=== PATIENT | male | born 1975 | race Caucasian/White ===

== ENCOUNTER 2018-05-06 20:17 | Emergency (ER) | payer BC ==
[2018-05-06 20:42] LABS: #Eosinphils 0.1 thou/uL (0.0-0.7); #Lymphocytes 1.5 thou/uL (1.20-3.40); #Monocytes 0.4 thou/uL (0.11-0.59); #Neutrophils 6.4 thou/uL (1.40-6.50); %Basophils 0.5 % (0.0-1.0); %Eosinophils 0.7 % (0.0-10.0); %Lymphocytes 18.3 % (21.0-51.0); %Monocytes 4.7 % (0.0-10.0); %Neutrophils 75.9 % (42.0-75.0); Hemoglobin 17.3 g/dL (14.0-18.0); Mean Corpuscular HGB CONC 35.2 g/dL (32.0-36.0); Platelet Count 196 thou/uL (130-400); RBC Distribution Width 11.1 % (11.5-14.5); Red Blood Cell (RBC) Count 5.58 mill/uL (4.70-6.10); White Blood Cell (WBC) Count 8.4 thou/uL (4.8-10.8)
[2018-05-06 20:59] LABS: ALT (SGPT) 19 U/L (8-55); AST (SGOT) 13 U/L (5-34); Albumin 4.4 g/dL (3.5-5.0); Alkaline Phosphatase 49 U/L (40-150); Anion Gap 13 mmol/L (10-20); BUN (Urea Nitrogen) 16 mg/dL (8.9-20.6); Bilirubin, Total 0.9 mg/dL (0.2-1.2); Calc. Creatinine Clearance 0 mL/min (70-130); Calcium 9.5 mg/dL (7.8-10.44); Carbon Dioxide 25 mmol/L (22-29); Chloride 104 mmol/L (98-107); Estimated GFR-MDRD 78; Globulin 2.9 g/dL (2.4-3.5); Glucose 115 mg/dL (70-105); Lipase 20 U/L (8-78); Potassium 4.3 mmol/L (3.5-5.1); Protein, Total 7.3 g/dL (6.0-8.3); Sodium 138 mmol/L (136-145)
[2018-05-06] MEDS ORDERED: Ondansetron PF 4 MG/2 ML Vial ONE (22:20)
[2018-05-06 22:46] LABS: Bilirubin Negative (Negative); Blood, Urine Negative (Negative); Clarity CLEAR (Clear); Glucose, Urine (Dipstick) Negative (Negative); Leukocyte Negative (Negative); Nitrite Negative (Negative); Protein, Urine (Dipstick) Negative (Neg-Trace); Specific Gravity, Urine 1.029 (1.002-1.036); pH, Urine 5.5 (5.0-9.0)
--- NOTE | 2018-05-06 23:04 | RAD ---
FRONTAL VIEW CHEST: INDICATIONS: Cough. COMPARISON: 06/09/2012 FINDINGS: There is no focal consolidation, effusion, or pneumothorax. The cardiac silhouette is within normal limits in size for the portable technique. There is osseous degenerative change. IMPRESSION: No focal consolidation. POS: [facility]
[2018-05-06] MEDS ORDERED: Ciprofloxacin 500 MG TAB ONE (23:15)
[2018-05-06] MEDS ORDERED: metroNIDAZOLE 500 MG/100 ML BAG ONE (23:16)
[2018-05-06] MEDS ORDERED: Acetaminophen 500 MG TAB ONE (23:16)
== END 2018-05-07 00:49 | disposition home or self-care (01) ==
LOC: ERS 20:17
DX: R10.9 Unspecified abdominal pain (principal); F17.210 Nicotine dependence, cigarettes, uncomplicated
CPT/HCPCS: 36415; 71045; 80053; 81003; 83690; 85025; 96361; 96365; 96375; J2405